=== PATIENT | female | born 1975 | race Caucasian/White ===

== ENCOUNTER 2020-07-06 08:40 | Outpatient (REF) | payer OTHER, SELFPAY ==
[2020-07-06 10:31] LABS: Hematocrit 38.6 % (37-47); Hemoglobin 12.4 g/dl (12.0-16.0); Mean Corpuscular HGB Conc 32.1 g/dl (31.0-35.0); Mean Corpuscular Hemoglobin 27.8 pg (27.0-33.0); Mean Corpuscular Volume 86.5 fL (80-98); Mean Platelet Volume 9.6 fL (9.4-12.3); Platelet Count 320 X10*3/uL (160-400); Red Blood Count 4.46 X10*6/uL (4.20-5.50); Red Cell Distribution Width 13.7 % (11.0-16.0); White Blood Count 7.5 X10*3/uL (4.8-10.8)
[2020-07-06 11:02] LABS: Estimated Average Glucose 197 mg/dL; Hemoglobin A1c % 8.5 %
[2020-07-06 11:07] LABS: HCG Quantitative < 2 mIU/mL; Thyroid Stimulating Hormone 1.06 uIU/mL (0.32-4.0)
[2020-07-06 11:08] LABS: Alanine Aminotransferase 38 U/L (0-31); Albumin Level 3.7 g/dL (3.5-5.0); Alkaline Phosphatase 79 U/L (39-117); Anion Gap 10 (12-20); Aspartate Amino Transferase 21 U/L (5-31); Bilirubin Total 0.3 mg/dL (0.0-1.0); Blood Urea Nitrogen 14 mg/dL (9-16); Calcium 9.3 mg/dL (8.4-10.2); Carbon Dioxide 26 mmol/L (22-29); Chloride 106 mmol/L (96-108); Cholesterol 183 mg/dL; Estimated Glomerular Filt Rate > 60; Glucose Fasting 218 mg/dL (60-99); HDL Cholesterol 45 mg/dL; LDL Cholesterol Calculated 111 mg/dl; Potassium 4.5 mmol/L (3.3-5.1); Sodium 137 mmol/L (135-145); Total Protein 7.2 g/dL (6.5-8.0); Triglycerides 139 mg/dL
[2020-07-06 11:09] LABS: TSH reflex Free T4 1.36 uIU/mL (0.32-4.0)
[2020-07-07 09:27] LABS: CT PCR NOT DETECTED (Not Detect.); NG PCR NOT DETECTED (Not Detect.)
== END 2020-07-06 08:41 | disposition home or self-care (01) ==
LOC: HO.LAB 08:40
PROVIDERS: Absent Provider Physician Assistant; PCP Physician Assistant; Visit Provider Obstetrics & Gynecology
DX: Z01.411 Encounter for gynecological examination (general) (routine) with abnormal findings (principal); N92.0 Excessive and frequent menstruation with regular cycle; I10 Essential (primary) hypertension; Z13.1 Encounter for screening for diabetes mellitus; Z13.220 Encounter for screening for lipoid disorders; Z13.29 Encounter for screening for other suspected endocrine disorder
CPT/HCPCS: 36415; 80053; 80061; 83036; 84443; 84702; 85027; 87491; 87591

== ENCOUNTER 2020-08-04 13:49 | Outpatient (REF) | payer OTHER, SELFPAY ==
--- NOTE | ~2020-08-04 | MM_ITS ---
EXAMINATION: MM SCREENING DIGITAL BREAST TOMOSYNTHESIS, BILATERAL CLINICAL INFORMATION: Screening. Asymptomatic. The lifetime risk of breast cancer based on the Tyrer-Cuzick Model is 12%. COMPARISON: Mammography: 06/03/2016 TECHNIQUE: Digital breast tomosynthesis is performed in both the craniocaudal and mediolateral oblique views along with computer-aided detection (CAD). Synthesized 2D images are generated from the tomosynthesis. Additional bilateral MLO views are provided. FINDINGS: There are scattered areas of fibroglandular density (ACR BI-RADS breast composition Category b). There are no significant masses, abnormal calcifications, or other abnormalities. Parenchymal pattern is similar to the prior exam. No significant changes. The axilla and skin contours are unremarkable. MM/MM tomosynthesis screening BI IMPRESSION: No mammographic evidence of malignancy. ASSESSMENT: BI-RADS 1: Negative RECOMMENDATION: Routine annual mammography screening. This patient's information was entered into a reminder system with a target due date for their next mammogram.
== END 2020-08-04 13:50 | disposition home or self-care (01) ==
LOC: HO.MAMMO 13:49
PROVIDERS: PCP Physician Assistant; Visit Provider Physician Assistant
DX: Z12.31 Encounter for screening mammogram for malignant neoplasm of breast (principal)
CPT/HCPCS: 77063; 77067

== ENCOUNTER 2020-08-16 11:15 | Outpatient (REF) | payer OTHER, SELFPAY | END 2020-08-16 11:16 | disposition home or self-care (01) | LOC: HO.LAB 11:15 | PROVIDERS: Visit Provider Obstetrics & Gynecology | DX: N92.0 Excessive and frequent menstruation with regular cycle (principal) | CPT/HCPCS: 88305 ==

== ENCOUNTER 2020-09-04 14:15 | Outpatient (REF) | payer OTHER, SELFPAY ==
--- NOTE | ~2020-09-04 | US_ITS ---
EXAMINATION: US PELVIS COMPLETE CLINICAL INFORMATION: Excessive and frequent menstruation. COMPARISON: None. TECHNIQUE: Transabdominal and transvaginal imaging of pelvis is performed. FINDINGS: The uterus is anteverted and anteflexed measuring 8.9 cm in length, 5.1 x 6.1 cm in transverse dimension. Endometrial thickness is 1.0 cm. There are small nabothian cysts seen in the cervix. Both ovaries are not seen well. There is no free fluid in the pelvis. US/US pelvic complete IMPRESSION: Small nabothian cysts in the cervix. The uterus is unremarkable except for mild thickening of the endometrium measuring 1.0 cm. Correlate with patient's clinical menstrual cycle. Ovaries are not seen.
--- NOTE | ~2020-09-04 | US_ITS ---
EXAMINATION: US PELVIS COMPLETE CLINICAL INFORMATION: Excessive and frequent menstruation. COMPARISON: None. TECHNIQUE: Transabdominal and transvaginal imaging of pelvis is performed. FINDINGS: The uterus is anteverted and anteflexed measuring 8.9 cm in length, 5.1 x 6.1 cm in transverse dimension. Endometrial thickness is 1.0 cm. There are small nabothian cysts seen in the cervix. Both ovaries are not seen well. There is no free fluid in the pelvis. US/US transvaginal IMPRESSION: Small nabothian cysts in the cervix. The uterus is unremarkable except for mild thickening of the endometrium measuring 1.0 cm. Correlate with patient's clinical menstrual cycle. Ovaries are not seen.
== END 2020-09-04 14:16 | disposition home or self-care (01) ==
LOC: HO.US 14:15
PROVIDERS: Visit Provider Obstetrics & Gynecology
DX: N92.0 Excessive and frequent menstruation with regular cycle (principal)
CPT/HCPCS: 58100; 76830; 76856

== ENCOUNTER → 2020-09-18 11:53 | Outpatient (BNVA) | payer OTHER, SELFPAY | PROVIDERS: PCP Physician Assistant; Visit Provider Obstetrics & Gynecology ==

== ENCOUNTER 2021-10-22 16:25 | Outpatient (REF) | payer OTHER, SELFPAY ==
--- NOTE | ~2021-10-22 | MM_ITS ---
EXAMINATION: MM SCREENING DIGITAL BREAST TOMOSYNTHESIS, BILATERAL CLINICAL INFORMATION: Screening. Asymptomatic. The lifetime risk of breast cancer based on the Tyrer-Cuzick Model is 12%. COMPARISON: Mammography: 08/04/2020, 06/03/2016 TECHNIQUE: Digital breast tomosynthesis is performed in both the craniocaudal and mediolateral oblique views along with computer-aided detection (CAD). Synthesized 2D images are generated from the tomosynthesis. FINDINGS: There are scattered areas of fibroglandular density (ACR BI-RADS breast composition Category b). There are no significant masses, abnormal calcifications, or other abnormalities. No developing density. No significant changes. The axilla are unremarkable. MM/MM tomosynthesis screening BI IMPRESSION: No mammographic evidence of malignancy. ASSESSMENT: BI-RADS 1: Negative RECOMMENDATION: Routine annual mammography screening. This patient's information was entered into a reminder system with a target due date for their next mammogram.
== END 2021-10-22 16:26 | disposition home or self-care (01) ==
LOC: HO.MAMMO 16:25
PROVIDERS: PCP Physician Assistant; Visit Provider Physician Assistant
DX: Z12.31 Encounter for screening mammogram for malignant neoplasm of breast (principal)
CPT/HCPCS: 77063; 77067

== ENCOUNTER 2022-11-07 09:51 | Outpatient (AMB) | payer OTHER, SELFPAY ==
--- NOTE | 2022-11-07 10:00 | A.OFFPC_ITS ---
Vital Signs 11/07/22 10:03 Height 5 ft 7 in Weight 256 lb 6 oz BMI 40.1 BP 112/74 Blood Pressure Location Lt brachial Position Sitting Respiration 17 Pulse 90 Pulse Source Pulse Oximeter Pulse Oximetry (%) 97 Oxygen Delivery Method Room Air Intake Visit Reasons: PE Intake Note: Patient is here today for a physical. 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: No Accompanied by: Self / Same As Patient Allergies latex Allergy (Intermediate, Uncoded 11/07/22 10:15) burning skin Pt states no food/medication a Allergy (Unknown, Uncoded 11/07/22 10:15) unkown Medication List - Last Reconciled 11/07/22 by Akin Crowder PA-C blood sugar diagnostic (FreeStyle Lite Strips) As directed blood-glucose meter (FreeStyle [place] Lite kit) As directed lancets (FreeStyle Lancets) As directed Tobacco use date assessed: 11/07/22 Dental Screening Dental Screen Date: 11/07/22 Did you have a dental visit in the last 12 months?: No Did you have a dental problem in the last 6 months where you did not have access to dental care?: No Was dental information given to patient?: Patient has dentist HPI PE HPI Details Patient is a 47-year-old female here today for a routine annual physical. Patient's past medical history significant for obesity, type 2 diabetes, GERD. .. Type 2 diabetes: Has not been on any diabetic medication at this time and unfortunately A1c very elevated at 14 today. Was previously on though has been out of the medication the last year. She does report polydipsia polyuria and some unintentional weight loss. PLAN: She is willing to start Ozempic to control her blood sugars and with added benefit of weight loss. 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 with Dr Harris Mammogram: Needs up-to-date mammogram, has upcoming appointment [facility] Medical History Screening for diabetes mellitus (DM) Impaired glucose metabolism Surgical History [place] teeth removed Tubal ligation status Hx of tonsillectomy History of cholecystectomy Family History (Updated 11/07/22 @ 10:20 by Akin Crowder PA-C) Mother Diabetes Father Epilepsia Sister Diabetes Social History Housing: House Alcohol intake: current Alcohol intake frequency: holidays/special occasions only Patient Tobacco Use Status: Never used Tobacco e-Cigarette/Vaping Use: Never Used service: No Current occupational status: employed 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 1. Little interest or pleasure in doing things: not at all 2. Feeling down, depressed, or hopeless: not at all 3. Trouble falling or staying asleep, or sleeping too much: not at all 4. Feeling tired or having little energy: not at all 5. Poor appetite or overeating: not at all 6. Feeling bad about yourself - or that you are a failure or have let yourself or your family down: not at all 7. Trouble concentrating on things, such as reading the newspaper or watching television: not at all 8. Moving or speaking so slowly that other people could have noticed. Or the opposite - being so fidgety or restless that you have been moving around a lot more than usual: not at all 9. Thoughts that you would be better off or of hurting yourself in some way: not at all Total score: 0 Depression Screening Interpretation: Negative 74333 - PHQ-9 Billing: Yes Source: Developed by Drs. Chaka Yang, Silvina Pritchard, Alberto Thomas and colleagues, with an educational ezra from [employer]. Thrive Questionnaire Date Thrive assessed: 11/07/22 I am a: Patient What is your living situation today?: I have a steady place to live Within the past 12 months, did the food you bought not last and you didn't have the money to get more?: Never true Within the past 12 months, did you worry whether your food would run out before you got money to buy more?: Never true Do you have trouble paying for medicines?: No Do you have trouble getting transportation to medical appointments?: No Do you have trouble paying your heating and electricity bill?: No Do you have trouble taking care of your child, family member or friend?: No Do you have trouble with day-to-day activities such as bathing, preparing meals, shopping, managing finances, etc.?: No Are you currently unemployed and looking for a job?: No Are you interested in more education?: No Please select the resources that you would like help with: None Currently or been in a relationship where the following occur: no concerns reported AUDIT C Alcohol Use Questionnaire (AUDIT-C) 1. How often do you have a drink containing alcohol?: Monthly or less 2. How many drinks containing alcohol do you have on a typical day when you are drinking?: 1 or 2 3. How often do you have six or more drinks on one occasion?: Never Total Score: 1 NATALIE-7 AMB Questionnaire NATALIE-7 Date NATALIE - 7 assessed: 11/07/22 Feeling nervous, anxious, or on edge: 0 = Not at all Not being able to stop or control worryin = Not at all Worrying too much about different things: 0 = Not at all Trouble relaxin = Not at all Being so restless that it is hard to sit still: 0 = Not at all Becoming easily annoyed or irritable: 0 = Not at all Feeling afraid as if something awful might happen: 0 = Not at all Total NATALIE-7 score (0-4 normal; 5-9 mild; 10-14 moderate; 15-21 severe): 0 Source: Developed by Drs. Chaka Yang, Silvina Pritchard, Alberto Thomas and colleagues, with an educational ezra from [employer]. NATALIE-7 Assessment Billing NATALIE-7 Assessment Tool: NATALIE-7 Assessment 76376 Review of Systems Const Denies body aches, Denies chills, Denies excessive sweating, Denies fatigue, Denies fever(s) and Denies headache(s) Eyes Denies blurry vision ENT Denies dysphagia, Denies vertigo, Denies dizziness, Denies headache(s), Denies hearing loss and Denies tinnitus Card Denies chest pain, Denies chest pain with activity, Denies syncope, Denies irregular heart rhythm and Denies dyspnea Resp Denies chest congestion, Denies cough, Denies hemoptysis, Denies dyspnea and Denies wheezing GI Denies abdominal pain, Denies melena, Denies hematochezia, Denies coffee ground emesis, Denies dysphagia, Denies diarrhea, Denies nausea and Denies vomiting Denies urinary frequency, Denies dysuria, Denies urinary hesitancy and Denies urinary urgency Musc Denies arthralgias, Denies limited range of motion, Denies muscle cramps and Denies muscle weakness Skin/Breast Denies rash and Denies skin ulcer Neuro Denies Abnormal speech present, Denies confusion, Denies vertigo, Denies dizziness, Denies syncope, Denies headache(s), Denies memory loss and Denies seizure-like activity Psych Denies anxiety, Denies confusion, Denies depression, Denies memory loss, Denies panic attacks and Denies paranoia Endo Denies excessive sweating, Denies fatigue, Denies flushing, Denies polydipsia and Denies polyuria Aller/Immun Denies wheezing Physical exam (Primary Care) Vital Signs: Last Vital Signs Pulse 90 11/07/22 10:03 Resp 17 11/07/22 10:03 BP 112/74 11/07/22 10:03 Pulse Ox 97 11/07/22 10:03 Oxygen Delivery Method Room Air 11/07/22 10:03 BMI result Body Mass Index 40.1 BMI Assessment/Plan discussion: High Tobacco/Smoking Status: Tobacco use Status Tobacco use date assessed 11/07/22 11/07/22 10:09 Patient Tobacco Use Status Never used Tobacco 11/07/22 10:02 e-Cigarette/Vaping Use Never Used 11/07/22 10:09 PHQ-9: PHQ-9 Score PHQ-9: Total score 0 11/07/22 10:16 Depression Screening Interpretation: Negative Thrive Assessment: Date of Thrive Assessment Date Thrive assessed 11/07/22 11/07/22 10:12 Currently or been in a relationship where the following occur: no concerns reported Const Other: Obese General: cooperative, comfortable, no acute distress, alert and awake; No confusion Orientation/consciousness: oriented to person, oriented to place, patient oriented x3 and No confusion HENMT Head: Yes normocephalic Ears: external ears normal and TM's normal bilaterally Face and sinus: No sinus tenderness Mouth: Normal oral and palatal mucosa present and tongue normal Teeth and gingiva: dentition normal and gingiva normal Throat: Yes posterior oropharynx normal, Yes tonsils normal and Yes uvula midline Eyes Conjunctivae: conjunctivae normal Sclerae: sclerae normal Pupils: Equal, round and reactive pupils present EOM: EOMs intact bilaterally Direct Ophthalmoscopy: No no photophobia Neck Neck: Yes no lymphadenopathy, No tender and Yes no JVD Thyroid: Thyroid normal Carotids: no bruits Chest Chest palpation & inspection: no tenderness Resp Effort & Inspection: normal respiratory effort, no audible wheezes, not labored and no stridor Auscultation: no crackles, no rales, no rhonchi and no wheezes Cardio Jugular venous distension: no JVD Rate: regular rate, not bradycardic and not tachycardic Rhythm: regular rhythm Bruits: no carotid bruits Peripheral pulses: Peripheral pulses 2+ throughout GI Inspection: Yes normal to inspection, No abdominal wall ecchymosis and No visible herniation Palpation (GI): Soft to palpation, nontender, no guarding, not rigid and No hepatosplenomegaly present Auscultation: normoactive bowel sounds General: Yes no CVA tenderness Back/Spine/Pelvis Back: no CVA tenderness and No back tenderness Cervical Spine: cervical ROM normal Thoracic/Lumbar Spine: thoracic and lumbar spine normal to inspection, straight leg raise negative bilaterally, No thoraco-lumbar ROM limited and No lumbar spinal tenderness Skin Lesions: no lesions Rashes: no rashes Wounds: no wounds Neuro General: oriented to person, oriented to place, patient oriented x3, CN's II-XI intact bilaterally and No confusion Cranial nerves: Yes Equal, round and reactive pupils present and Yes Normal accommodation reflex present Cognition (Neuro): normal cognition Speech: No Abnormal speech present Gait exam (Neuro): Normal gait present Motor exam (neuro): 5/5 motor strength present throughout Extrem Right upper extremity: full ROM; no cyanosis Left upper extremity: full ROM; no cyanosis Right lower extremity: no edema Left lower extremity: no edema Psych Appearance: grossly normal Mental Status: mental status grossly normal Affect: normal affect Attitude: cooperative Thought process: Normal thought process present Results AMB Hemoglobin A1c AMB Hemoglobin A1c 14.0 % Last Edit by CARLY Bryan on 11/07/22 10:12 Results Reviewed Results Reviewed: Laboratory Last Values Hgb A1c (Clinic) 14.0 % (4.0-6.0) H 11/07/22 09:59 Assessment and Plan Assessment & Plan (1) Adult general medical exam: Code(s): Z00.00 - Encounter for general adult medical examination without abnormal findings (2) DMII (diabetes mellitus, type 2): Code(s): E11.9 - Type 2 diabetes mellitus without complications Qualifiers: Diabetes mellitus complication status: with hyperglycemia 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 Has been out of her metformin over the last year and half. She is willing to start Ozempic for added benefit of weight loss as first-line treatment for her diabetes . Has supply patient with script for continues glucose monitor. A1c is to be below 7.0 (3) Obese: Code(s): E66.9 - Obesity, unspecified Qualifiers: Body mass index: BMI 40.0-44.9 Obesity classification: adult class 3 (BMI >= 40) Obesity type: due to excess calories Serious obesity comorbidity presence: without serious comorbidity Qualified Code(s): E66.01 - Morbid (severe) obesity due to excess calories; Z68.41 - Body mass index [BMI] 40.0- 44.9, adult Plan: Patient has noted weight loss though likely due to uncontrolled type 2 diabetes. Will work on being more physically active and adapting to better eating habits to reduce her weight (4) HLD (hyperlipidemia): Code(s): E78.5 - Hyperlipidemia, unspecified Qualifiers: Hyperlipidemia type: mixed hyperlipidemia Qualified Code(s): E78.2 - Mixed hyperlipidemia Plan: Patient's most recent lipid panel showing slightly elevated LDL. Will recheck fasting lipid panel and if LDL above 100 consider statin therapy with . goal LDL to be below 100 Orders: Orders AMB Hemoglobin A1c 11/07/22 E11.9 - Type 2 diabetes mellitus without complications Lipid Panel 11/07/22 E11.9 - Type 2 diabetes mellitus without complications, E78.5 - Hyperlipidemia, unspecified Complete Blood Count no Diff 11/07/22 E11.65 - Type 2 diabetes mellitus with hy perglycemia Comprehensive [place]. Panel Fast 11/07/22 E11.65 - Type 2 diabetes mellitus with hyperglycemia Microalbumin, Random (w Creat) 11/07/22 E11.65 - Type 2 diabetes mellitus with hyperglycemia Medications: New semaglutide (Ozempic) 0.25 mg (0.368 mL) subcut QWEEK 6 weeks 3 mL 0RF E11.65 - Type 2 diabetes mellitus with hyperglycemia flash glucose scanning reader (FreeStyle [place] 2 [place]) As directed 1 ea 0RF E11.65 - Type 2 diabetes mellitus with hyperglycemia flash glucose sensor (FreeStyle [place] 2 Sensor kit) As directed 1 ea 6RF E11.65 - Type 2 diabetes mellitus with hyperglycemia Coding Level of Care Code Est Pt Prev Care 40-64y(22599) Diagnoses Adult general medical exam Z00.00 Type 2 diabetes mellitus with hyperglycemia, without long-term current use of insulin E11.65 Diabetes mellitus complication status: with hyperglycemia 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
[2022-11-07 10:03] VITALS: BP 112/74; PULSE 90; RESP 17; O2SAT 97; BMI 40.1
== END 2022-11-07 10:42 | disposition home or self-care (01) ==
PROVIDERS: PCP Physician Assistant; Visit Provider Physician Assistant
DX: E11.9 Type 2 diabetes mellitus without complications (principal)
CPT/HCPCS: 83036; 99396

== ENCOUNTER 2023-03-18 07:53 | Outpatient (REF) | payer OTHER, SELFPAY ==
[2023-03-21 06:05] LABS: HPV mRNA E6/E7 rflx Not Detected (Not Detected)
== END 2023-03-18 07:54 | disposition home or self-care (01) ==
LOC: HO.LNP 07:53
PROVIDERS: PCP Physician Assistant; Visit Provider Obstetrics & Gynecology
DX: Z01.419 Encounter for gynecological examination (general) (routine) without abnormal findings (principal); Z11.51 Encounter for screening for human papillomavirus (HPV)
CPT/HCPCS: 87624; 88142

== ENCOUNTER 2023-03-18 07:53 | Outpatient (AMB) | payer OTHER, SELFPAY ==
--- NOTE | 2023-03-18 07:54 | A.OFFVIS_ITS ---
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 No complaints. Last Pap/HPV was negative in 11/10 Last Mammogram was BI-RADS 1 in 10/15 No previous screening colonoscopy [facility] Medical History Screening for diabetes mellitus (DM) Impaired glucose metabolism Surgical History [place] teeth removed Tubal ligation status Hx of tonsillectomy History of cholecystectomy Family History Mother Diabetes Father Epilepsia Sister Diabetes Social History Household Members: None Housing: House Alcohol intake: current Alcohol intake frequency: holidays/special occasions only Patient Tobacco Use Status: Never used Tobacco e-Cigarette/Vaping Use: Never Used service: No Current occupational status: employed 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[place] Sexually active: Yes Sexual orientation: Straight/Heterosexual Gender identity: Female Cognitive needs: No Hearing needs: No Vision needs: No Female Reproductive History Menstrual Age of Menarche: 10 Menopause type: natural Total pregnancies: 1 Full term: 1 Number of Living Children: 1 Date of last pap smear: 11/20/16 Date of Mammogram: 10/22/21 Review of Systems Const All systems reviewed & are unremarkable except as noted in HPI and below Card Reports as per HPI Resp Reports as per HPI GI Reports as per HPI and Reports no additional complaints Reports as per HPI Physical Exam Vital Signs: Last Vital Signs BP 98/60 03/18/23 07:55 BMI result Body Mass Index 40.1 Const General: cooperative, healthy appearing and comfortable Chest Chest palpation & inspection: normal inspection of the chest and normal palpation of entire chest wall Breast/axilla inspection: normal inspection of the breasts and normal inspection of the axillae Breast/axilla palpation: normal palpation of the breasts, normal palpation of the axillae and no axillary lymphadenopathy Resp Effort & Inspection: normal respiratory effort Auscultation: clear to auscultation bilaterally Percussion: percussion normal Cardio Palpation: normal PMI Rate: regular rate Rhythm: regular rhythm Heart sounds: no murmurs and no rubs Peripheral pulses: Peripheral pulses 2+ throughout GI Inspection: Yes normal to inspection Palpation (GI): Soft to palpation, nontender, no guarding, not rigid and No hepatosplenomegaly present Percussion: Yes normal to percussion Auscultation: normal bowel sounds Rectal Exam - Female: deferred General: Yes bladder normal to palpation External Female Exam: No lesion Speculum Exam - Vagina: normal appearance of the vagina, normal palpation, normal vaginal discharge and not erythematous Speculum Exam - Cervix: normal appearance of the cervix and normal palpation Bimanual exam- vagina & uterus: normal bimanual exam, normal palpation, uterine size normal, bladder normal to palpation, consistency normal and normal palpation Bimanual Exam- Adnexa, other: normal adnexae, no masses and no tenderness Assessment & Plan Assessment & Plan (1) Well woman exam: Code(s): Z01.419 - Encounter for gynecological examination (general) (routine) without abnormal findings Plan: Cotesting done. Mammogram ordered. Counseled the patient about the recommended dietary allowance of 1000 mg of Calcium & 600 IU of vitamin D. Will refer to GI for screening colonoscopy The patient was instructed to perform monthly self-breast exams and to schedule an annual exam in a year; All questions answered and the patient verbalized understanding. Instructed the patient to schedule annual exam in a year Orders: Orders MM screening mammo BI Today Z12.31 - Encounter for screening mammogram for malignant neoplasm of breast Referrals Gastroenterology Referral Z12.11 - Encounter for screening for malignant neoplasm of colon Coding Level of Care Code Est Pt Prev Care 40-64y(48706) Diagnoses Well woman exam Z01.419
[2023-03-18 07:55] VITALS: BP 98/60; BMI 40.1
== END 2023-03-18 08:18 | disposition home or self-care (01) ==
PROVIDERS: PCP Physician Assistant; Visit Provider Obstetrics & Gynecology
DX: Z01.419 Encounter for gynecological examination (general) (routine) without abnormal findings (principal)
CPT/HCPCS: 99396

== ENCOUNTER 2023-03-18 08:22 | Outpatient (REF) | payer OTHER, SELFPAY ==
[2023-03-18 10:12] LABS: Hematocrit 40.7 % (37.0-47.0); Hemoglobin 13.6 g/dl (12.0-16.0); Mean Corpuscular HGB Conc 33.4 g/dl (31.0-35.0); Mean Corpuscular Hemoglobin 29.4 pg (27.0-33.0); Mean Corpuscular Volume 87.9 fL (80.0-98.0); Mean Platelet Volume 9.6 fL (9.4-12.3); Platelet Count 300 X10*3/uL (160-400); Red Blood Count 4.63 X10*6/uL (4.20-5.50); Red Cell Distribution Width 13.1 % (11.0-16.0); White Blood Count 7.6 X10*3/uL (4.8-10.8)
[2023-03-18 10:18] LABS: Creatinine Urine 175.81 mg/dL; Microalbum/Creatinine Ratio Ur 13.6 ug/mg cr (<30)
[2023-03-18 10:50] LABS: Alanine Aminotransferase 28 U/L (0-31); Albumin Level 3.5 g/dL (3.5-5.0); Alkaline Phosphatase 58 U/L (39-117); Anion Gap 10 (12-20); Aspartate Amino Transferase 18 U/L (5-31); Bilirubin Total 0.3 mg/dL (0.0-1.0); Blood Urea Nitrogen 15 mg/dL (9-16); Calcium 8.7 mg/dL (8.4-10.2); Carbon Dioxide 25 mmol/L (22-29); Chloride 108 mmol/L (96-108); Cholesterol 199 mg/dL (<200); Estimated Glomerular Filt Rate > 60; Glucose Fasting 227 mg/dL (60-99); HDL Cholesterol 48 mg/dL (>40); LDL Cholesterol Calculated 126 mg/dL (<100); Potassium 3.7 mmol/L (3.3-5.1); Sodium 139 mmol/L (135-145); Total Protein 7.3 g/dL (6.5-8.0); Triglycerides 129 mg/dL (<150)
== END 2023-03-18 08:23 | disposition home or self-care (01) ==
LOC: HO.LAB 08:22
PROVIDERS: PCP Physician Assistant; Visit Provider Physician Assistant
DX: E11.65 Type 2 diabetes mellitus with hyperglycemia (principal); E78.5 Hyperlipidemia, unspecified
CPT/HCPCS: 36415; 80053; 80061; 82043; 82570; 85027

== ENCOUNTER 2024-01-01 14:48 | Outpatient (AMB) | payer OTHER, SELFPAY ==
--- NOTE | 2024-01-01 14:54 | A.OFFPC_ITS ---
Vital Signs 01/01/24 15:07 Height 5 ft 7 in Weight 249 lb 2 oz BMI 39.0 BP 100/72 Blood Pressure Location Lt brachial Position Sitting Pulse 88 Pulse Source Pulse Oximeter Pulse Oximetry (%) 95 Oxygen Delivery Method Room Air Intake Visit Reasons: Follow up DMII Wireless Technician Required: No Accompanied by: Self / Same As Patient Allergies latex Allergy (Intermediate, Uncoded 01/01/24 15:19) burning skin Pt states no food/medication a Allergy (Unknown, Uncoded 01/01/24 15:19) unkown Medication List - Last Reconciled 01/01/24 by Akin Crowder PA-C blood sugar diagnostic (FreeStyle Lite Strips) As directed blood-glucose meter (FreeStyle [place] Lite kit) As directed flash glucose scanning reader (FreeStyle Viridiana 2 [place]) As directed flash glucose sensor (FreeStyle Viridiana 2 Sensor kit) As directed lancets (FreeStyle Lancets) As directed omeprazole 20 mg PO DAILY 30 days semaglutide (Ozempic) 0.5 mg (0.736 mL) subcut QWEEK 4 weeks Tobacco use date assessed: 01/01/24 Dental Screening Dental Screen Date: 01/01/24 Did you have a dental visit in the last 12 months?: Yes Did you have a dental problem in the last 6 months where you did not have access to dental care?: No Was dental information given to patient?: Patient has dentist HPI Follow up DMII HPI Details Patient is a 48-year-old female here today for a follow-up visit. Patient's past medical history significant for obesity, type 2 diabetes, GERD. .. Type 2 diabetes: We have started Ozempic which has offered her good glycemic control and has been able to lose 7 lb since last office visit. Her A1c today has much improved though still above 8. PLAN: Will increase her Ozempic dose to 1 mg weekly for better glycemic control .. Hyperlipidemia: Most recent lipid panel showing slightly elevated total cholesterol and LDL. She is willing to start low-dose statin therapy with goal LDL to be below 100 to reduce her cardiovascular risk. 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 1. Little interest or pleasure in doing things: not at all 2. Feeling down, depressed, or hopeless: not at all 3. Trouble falling or staying asleep, or sleeping too much: not at all 4. Feeling tired or having little energy: not at all 5. Poor appetite or overeating: not at all 6. Feeling bad about yourself - or that you are a failure or have let yourself or your family down: not at all 7. Trouble concentrating on things, such as reading the newspaper or watching television: not at all 8. Moving or speaking so slowly that other people could have noticed. Or the opposite - being so fidgety or restless that you have been moving around a lot more than usual: not at all 9. Thoughts that you would be better off or of hurting yourself in some way: not at all Total score: 0 Depression Screening Interpretation: Negative Depression Screening Done: Yes 59594 - PHQ-9 Billing: Yes Source: Developed by Drs. Chaka Yang, Silvina Pritchard, Alberto Thomas and colleagues, with an educational ezra from [employer]. Thrive Questionnaire Date Thrive assessed: 01/01/24 I am a: Patient What is your living situation today?: I have a steady place to live Within the past 12 months, did the food you bought not last and you didn't have the money to get more?: Never true Within the past 12 months, did you worry whether your food would run out before you got money to buy more?: Never true Do you have trouble paying for medicines?: No Do you have trouble getting transportation to medical appointments?: No Do you have trouble paying your heating and electricity bill?: No Do you have trouble taking care of your child, family member or friend?: No Do you have trouble with day-to-day activities such as bathing, preparing meals, shopping, managing finances, etc.?: No Are you currently unemployed and looking for a job?: No Are you interested in more education?: No Please select the resources that you would like help with: None Currently or been in a relationship where the following occur: No concerns reported THRIVE Score: 0 AUDIT C Alcohol Use Questionnaire (AUDIT-C) 1. How often do you have a drink containing alcohol?: Monthly or less 2. How many drinks containing alcohol do you have on a typical day when you are drinking?: 1 or 2 3. How often do you have six or more drinks on one occasion?: Never Total Score: 1 NATALIE-7 AMB Questionnaire NATALIE-7 Date NATALIE - 7 assessed: 01/01/24 Feeling nervous, anxious, or on edge: 0 = Not at all Not being able to stop or control worryin = Not at all Worrying too much about different things: 0 = Not at all Trouble relaxin = Not at all Being so restless that it is hard to sit still: 0 = Not at all Becoming easily annoyed or irritable: 0 = Not at all Feeling afraid as if something awful might happen: 0 = Not at all Total NATALIE-7 score (0-4 normal; 5-9 mild; 10-14 moderate; 15-21 severe): 0 Source: Developed by Drs. Chaka Yang, Silvina Pritchard, Alberto Thomas and colleagues, with an educational ezra from [employer]. NATALIE-7 Assessment Billing NATALIE-7 Assessment Tool: NATALIE-7 Assessment 81329 Review of Systems Const Denies headache(s) Eyes Denies loss of vision ENT Denies vertigo, Denies dizziness, Denies headache(s) and Denies sore throat Card Denies chest pain, Denies leg edema and Denies lightheadedness Resp Denies cough, Denies hemoptysis and Denies wheezing GI Denies abdominal pain, Denies melena, Denies constipation, Denies diarrhea and Denies vomiting Denies urinary frequency, Denies dysuria and Denies urinary urgency Musc Denies arthralgias, Denies joint swelling, Denies numbness and Denies tingling Neuro Denies Abnormal speech present, Denies behavioral changes, Denies vertigo, Denies dizziness, Denies headache(s), Denies loss of vision, Denies memory loss, Denies numbness and Denies tingling Psych Denies anxiety, Denies behavioral changes, Denies depression, Denies memory loss and Denies panic attacks Morro/Lymph Denies easy bleeding and Denies easy bruising Aller/Immun Denies wheezing Physical exam (Primary Care) Vital Signs: Last Vital Signs Pulse 88 01/01/24 15:07 BP 100/72 01/01/24 15:07 Pulse Ox 95 01/01/24 15:07 Oxygen Delivery Method Room Air 01/01/24 15:07 BMI result Body Mass Index 39.0 Tobacco/Smoking Status: Tobacco use Status Tobacco use date assessed 01/01/24 01/01/24 15:09 Patient Tobacco Use Status Never used Tobacco 01/01/24 14:54 e-Cigarette/Vaping Use Never Used 01/01/24 14:54 PHQ-9: PHQ-9 Score PHQ-9: Total score 0 01/01/24 15:20 Depression Screening Interpretation: Negative Thrive Assessment: Date of Thrive Assessment Date Thrive assessed 01/01/24 01/01/24 15:09 Currently or been in a relationship where the following occur: No concerns reported Const General: healthy appearing, no acute distress, alert and awake Nutritional Appearance: well nourished Orientation/consciousness: oriented to person, oriented to place and oriented to time HENMT Ears: TM's normal bilaterally General nose exam: Normal nasal mucous membranes and turbinates present Eyes Conjunctivae: conjunctivae normal Sclerae: sclerae normal Pupils: Equal, round and reactive pupils present Neck Neck: Yes no lymphadenopathy and Yes no JVD Thyroid: Thyroid normal Carotids: no bruits Resp Effort & Inspection: normal respiratory effort and not tachypneic Auscultation: no crackles, no rales, no rhonchi and no wheezes Cardio Rate: regular rate Rhythm: regular rhythm Heart sounds: no murmurs and normal S1 and S2 GI Palpation (GI): Soft to palpation, nontender, no hepatomegaly and no splenomegaly Auscultation: normal bowel sounds Skin General skin exam: no rashes or lesions noted and dry skin Neuro General: oriented to person, oriented to place and oriented to time Cranial nerves: Yes Equal, round and reactive pupils present Speech: No Abnormal speech present Gait exam (Neuro): Normal gait present Motor exam (neuro): no tremor noted Extrem Right upper extremity: full ROM Left upper extremity: full ROM Right lower extremity: full ROM; no edema Left lower extremity: full ROM; no edema Psych Mental Status: mental status grossly normal Speech and movement: Normal speech and movement present Affect: normal affect Attitude: cooperative Thought process: Normal thought process present Office Procedures Flu Questionnaire Does the patient have a severe egg allergy?: No Results AMB Hemoglobin A1c AMB Hemoglobin A1c 8.5 % Last Edit by CARLY Bryan on 01/01/24 15:17 Immunizations Fluarix Triv [id number] (PF) 45 mcg (15 mcg x 3)/0.5 mL IM syringe Performing Provider: Akin Crowder PA-C [place] [facility] [place] [facility] Documented (not given) by: CARLY Bryan on 01/01/24 15:07 Reason Not Given: Patient Refused Results Reviewed Results Reviewed: Laboratory Last Values Hgb A1c (Clinic) 8.5 % (4.0-6.0) H 01/01/24 14:53 Coding Level of Care Code Est Pt Level 4 (57333) Diagnoses Type 2 diabetes mellitus with hyperglycemia, without long-term current use of insulin E11.65 Diabetes mellitus complication status: with hyperglycemia Diabetes mellitus tank terminal gauger insulin use: without residential use Mixed hyperlipidemia E78.2 Hyperlipidemia type: mixed hyperlipidemia Class 2 obesity E66.812 Additional Codes NATALIE-7 Assessment Billing - NATALIE-7 Assessment Tool: NATALIE-7 Assessment 36581 ([id number]) PHQ-9 - 57275 - PHQ-9 Billing: Yes ([id number]) Assessment & Plan Assessment & Plan (1) DMII (diabetes mellitus, type 2): Code(s): E11.9 - Type 2 diabetes mellitus without complications Category: Medical Qualifiers: Diabetes mellitus complication status: with hyperglycemia Diabetes mellitus residential insulin use: without tank terminal gauger use Qualified Code(s): E11.65 - Type 2 diabetes mellitus with hyperglycemia Plan: Patient's type 2 diabetes suboptimally controlled with A1c still above 8. Will increase her Ozempic to 1 mg weekly. Goal A1c is to be below 7.0 (2) HLD (hyperlipidemia): Code(s): E78.5 - Hyperlipidemia, unspecified Category: Medical Qualifiers: Hyperlipidemia type: mixed hyperlipidemia Qualified Code(s): E78.2 - Mixed hyperlipidemia Plan: As per HPI patient's most recent lipid panel showing elevated total cholesterol and LDL. Will start low-dose statin therapy to reduce her LDL below 100. (3) Class 2 obesity: Code(s): E66.812 - Obesity, class 2 Category: Medical Plan: Patient does understand her BMI is over 35 and will continue working on being more physically active and adapting to better eating habits to reduce her weight. Orders: Orders Comprehensive [place]. Panel Fast 01/01/24 E11.65 - Type 2 diabetes mellitus with hyperglycemia AMB Hemoglobin A1c 01/01/24 E11.65 - Type 2 diabetes mellitus with hyp erglycemia Lipid Panel 01/01/24 E78.2 - Mixed hyperlipidemia Microalbumin, Random (w Creat) 01/01/24 E11.65 - Type 2 diabetes mellitus with hyperglycemia Complete Blood Count no Diff 01/01/24 E11.65 - Type 2 diabetes mellitus with hyperglycemia Influenza [id number] Immunization 01/01/24 Z23 - Encounter for immunization Medications: New semaglutide (Ozempic) 1 mg (0.75 mL) subcut QWEEK 4 weeks 3 mL 3RF E11.65 - Type 2 diabetes mellitus with hyperglycemia simvastatin 10 mg PO DAILY 90 days 90 tabs 1RF E78.2 - Mixed hyperlipidemia Refilled flash glucose sensor (FreeStyle Viridiana 2 Sensor kit) As directed 1 ea 6RF E11.65 - Type 2 diabetes mellitus with hyperglycemia On Hold semaglutide (Ozempic) Hold Comment: Doctor's Order 0.5 mg (0.736 mL) subcut QWEEK 4 weeks 3 mL 3RF E11.65 - Type 2 diabetes mellitus with hyperglycemia Patient Instructions: Goal: A1c to be below 7.0, LDL to be below 100 Barriers: Adherence to physical activity and healthy eating habits
[2024-01-01 15:07] VITALS: BP 100/72; PULSE 88; O2SAT 95; BMI 39.0
== END 2024-01-01 15:39 | disposition home or self-care (01) ==
LOC: HO.HMCH 14:48
PROVIDERS: PCP Physician Assistant; Visit Provider Physician Assistant
DX: E11.65 Type 2 diabetes mellitus with hyperglycemia (principal); E78.2 Mixed hyperlipidemia; E66.812 Obesity, class 2; Z68.39 Body mass index [BMI] 39.0-39.9, adult

== ENCOUNTER → 2024-01-01 14:48 | Outpatient (BNVA) | payer OTHER, SELFPAY | PROVIDERS: PCP Physician Assistant; Visit Provider Physician Assistant | DX: E11.65 Type 2 diabetes mellitus with hyperglycemia (principal); E78.2 Mixed hyperlipidemia; E66.812 Obesity, class 2; Z68.39 Body mass index [BMI] 39.0-39.9, adult; Z79.85 Long-term (current) use of injectable non-insulin antidiabetic drugs | CPT/HCPCS: 83036; 90471; 96127 ==

== ENCOUNTER 2024-11-03 07:41 | Outpatient (AMB) | payer OTHER, SELFPAY ==
--- NOTE | 2024-11-03 07:46 | A.OFFVIS_ITS ---
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 No complaints. Last Pap/HPV was negative in 03/19 Last Mammogram was BI-RADS 1 in 10/15 No previous screening colonoscopy [facility] Medical History Screening for diabetes mellitus (DM) Impaired glucose metabolism Surgical History [place] teeth removed Tubal ligation status Hx of tonsillectomy History of cholecystectomy Family History Mother Diabetes Father Epilepsia Sister Diabetes Social History Household Members: None Housing: House Alcohol intake: current Alcohol intake frequency: holidays/special occasions only Patient Tobacco Use Status: Never used Tobacco e-Cigarette/Vaping Use: Never Used service: No Current occupational status: employed 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[employer] Sexual 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: Straight/Heterosexual Gender identity: Female Cognitive needs: No Hearing needs: No Vision needs: No Female Reproductive History Menstrual Age of Menarche: 10 Date of last pap smear: 03/18/23 Review of Systems Const All systems reviewed & are unremarkable except as noted in HPI and below Card Reports as per HPI Resp Reports as per HPI GI Reports as per HPI and Reports no additional complaints Reports as per HPI Physical Exam Vital Signs: BMI result Body Mass Index 38.7 Const General: cooperative, healthy appearing and comfortable Chest Chest palpation & inspection: normal inspection of the chest and normal palpation of entire chest wall Breast/axilla inspection: normal inspection of the breasts and normal inspection of the axillae Breast/axilla palpation: normal palpation of the breasts, normal palpation of the axillae and no axillary lymphadenopathy Resp Effort & Inspection: normal respiratory effort Auscultation: clear to auscultation bilaterally Percussion: percussion normal Cardio Palpation: normal PMI Rate: regular rate Rhythm: regular rhythm Heart sounds: no murmurs and no rubs Peripheral pulses: Peripheral pulses 2+ throughout GI Inspection: Yes normal to inspection Palpation (GI): Soft to palpation, nontender, no guarding, not rigid and No hepatosplenomegaly present Percussion: Yes normal to percussion Auscultation: normal bowel sounds Rectal Exam - Female: deferred General: Yes bladder normal to palpation External Female Exam: No lesion Speculum Exam - Vagina: normal appearance of the vagina, normal palpation, normal vaginal discharge and not erythematous Speculum Exam - Cervix: normal appearance of the cervix and normal palpation Bimanual exam- vagina & uterus: normal bimanual exam, normal palpation, uterine size normal, bladder normal to palpation, consistency normal and normal palpation Bimanual Exam- Adnexa, other: normal adnexae, no masses and no tenderness Assessment & Plan Assessment & Plan (1) Well woman exam: Code(s): Z01.419 - Encounter for gynecological examination (general) (routine) without abnormal findings Category: Medical Plan: Co testing not indicated this year. Counseled the patient about the recommended dietary allowance of 1200 mg of Calcium & 600 IU of vitamin D. Mammogram ordered. The patient was referred to GI for screening colonoscopy . The patient was instructed to perform monthly self-breast exams and schedule annual exam in a year. All questions answered and the patient verbalized understanding. Orders: Orders MM tomosynthesis screening BI Today Z12.31 - Encounter for screening mammogram for malignant neoplasm of breast Referrals Gastroenterology Referral Z12.11 - Encounter for screening for malignant neoplasm of colon Coding Level of Care Code Est Pt Prev Care 40-64y(21946) Diagnoses Well woman exam Z01.419
[2024-11-03 07:54] VITALS: BP 120/70; BMI 38.7
== END 2024-11-03 08:59 | disposition home or self-care (01) ==
LOC: HO.HWS 07:41
PROVIDERS: PCP Physician Assistant; Visit Provider Obstetrics & Gynecology
DX: Z01.419 Encounter for gynecological examination (general) (routine) without abnormal findings (principal)
CPT/HCPCS: 99396; 99459